=== PATIENT | female | born 1960 | race Caucasian/White ===

== ENCOUNTER 2019-04-17 12:07 | Inpatient (IN) | payer MEDICARE, SELFPAY ==
--- NOTE | 2019-04-17 12:59 | CT ---
EXAM: CT brain without contrast HISTORY: Nausea and vomiting. Headache and dizziness. COMPARISON: None TECHNIQUE: Multiple contiguous axial images were obtained and a CT of the brain without contrast. FINDINGS: The brain is normal in morphology and attenuation without focal lesions or confluent areas of infarction. There is no evidence of hydrocephalus, intracranial hemorrhage, or extra-axial fluid collection. The calvarium and overlying soft tissues are unremarkable. The visualized paranasal sinuses and masto id air cells are well aerated. IMPRESSION: No evidence of acute intracranial abnormality
[2019-04-17 13:07] LABS: #Monocytes 0.2 thou/uL (0.11-0.59); #Neutrophils 1.5 thou/uL (1.40-6.50); %Basophils 1.6 % (0.0-1.0); %Eosinophils 0.7 % (0.0-10.0); %Lymphocytes 35.3 % (21.0-51.0); %Monocytes 6.6 % (0.0-10.0); %Neutrophils 55.8 % (42.0-75.0); Hemoglobin 12.2 g/dL (12.0-16.0); Mean Corpuscular HGB CONC 34.1 g/dL (32.0-36.0); Mean Corpuscular Hemoglobin 34.1 pg (27.0-31.0); Mean Platelet Volume 7.7 fL (7.4-10.4); Platelet Count 227 thou/uL (130-400); RBC Distribution Width 12.2 % (11.5-14.5); Red Blood Cell (RBC) Count 3.57 mill/uL (4.20-5.40); White Blood Cell (WBC) Count 2.8 thou/uL (4.8-10.8)
[2019-04-17 13:28] LABS: ALT (SGPT) 44 U/L (8-55); AST (SGOT) 81 U/L (5-34); Alkaline Phosphatase 231 U/L (40-110); Anion Gap 12 mmol/L (10-20); BUN (Urea Nitrogen) Less than 4 mg/dL (9.8-20.1); Bilirubin, Total 0.2 mg/dL (0.2-1.2); Calc. Creatinine Clearance 0 mL/min (70-130); Calcium 8.5 mg/dL (7.8-10.44); Carbon Dioxide 35 mmol/L (22-29); Chloride 89 mmol/L (98-107); Estimated GFR-MDRD Greater than 90; Globulin 3.1 g/dL (2.4-3.5); Glucose 87 mg/dL (70-105); Potassium 3.3 mmol/L (3.5-5.1); Protein, Total 6.1 g/dL (6.0-8.3); Sodium 133 mmol/L (136-145)
[2019-04-17] MEDS ORDERED: Ondansetron PF 4 MG/2 ML Vial ONE ×2 (14:15→14:16)
[2019-04-17] MEDS ORDERED: Acetaminophen 500 MG TAB ONE (16:01)
[2019-04-17] MEDS ORDERED: Acetaminophen 650 MG Suppository ONE (16:01)
[2019-04-17 18:34] LABS: Troponin I Less than 0.010 ng/mL (< 0.028)
[2019-04-17] MEDS ORDERED: Aspirin 325 MG TAB ONE (19:52)
[2019-04-17 21:56] LABS: Troponin I Less than 0.010 ng/mL (< 0.028)
--- NOTE | 2019-04-17 22:20 | CT ---
CT Head without IV contrast COMPARISON: 04/17/2019 HISTORY: Abrasion to forehead after a fall. Dizziness. Nausea. Right-sided headache. TECHNIQUE: Axial CT imaging at 5 mm intervals from vertex through skull base without contrast FINDINGS: There is no evidence of an acute infarction, hemorrhage, mass effect, or midline shift. There is decr eased attenuation seen in the periventricular white matter which is nonspecific but likely attributable to chronic small vessel ischemic changes. There is mild cerebral volume loss. The ventri cular system is normal in size, shape, and position for the degree of sulcal atrophy. Visualized paranasal sinuses are clear. Osseous structures appear intact. No calvarial fracture is seen. There is mild scalp soft tissue swel ling seen in the right parietal region. IMPRESSION: 1. No acute intracranial abnormality demonstrated. 2. Chronic small vessel ischemic changes interval volume loss similar prior study. 2. Minimal scalp hematoma right parietal region.
--- NOTE | 2019-04-17 22:25 | CT ---
EXAM: CT cervical spine PROVIDED CLINICAL HISTORY: Dizziness after a fall. Vomiting. Right-sided headache. TECHNIQUE: Contiguous axial CT images are obtained through the cervical spine from the skull base to the T2-3 le hitesh. Sagittal and coronal reformatted images are provided. COMPARISON: None FINDINGS: There is narrowing of the C5-6 intervertebral disc space with endplate sclerosis and lucencies with p rominent osteophytes anteriorly. Findings are most likely related to severe endplate degenerative changes at this level. Scattered facet degenerative changes are present. No fracture or subluxation is seen involving the cervical spine. There is straightening of the normal cervical lordotic curvature. No prevertebral soft tissue swelling apparent. Visualized lung apices appear clear. Visualized thyroid gland demonstrates a grossly normal nonenhanced CT appearance. IMPRESSION: 1. No evidence of fracture or subluxation. 2. Findings most likely attributable to severe degenerative changes at C5-6 level.
--- NOTE | 2019-04-18 | HP ---
CHIEF COMPLAINT: Nausea, vomiting, dizziness, and headache. HISTORY OF PRESENT ILLNESS: Ms. Camp is a 58-year-old female with past medical history of hypothyroidism, bipolar disorder, started having headaches two days ago, but she says she had like flu-like symptoms five days ago and got better in two days, but again started having some nausea but no vomiting. Feeling very unsteady. When she gets up, her legs give away, give wobbly. She needs support to walk because she felt like she was going to fall. The headache is mainly on the right side behind the right eye with associated with nausea and blurry vision. Patient does not have any history of migraine headaches. So, because of these worsening symptoms, the patient came to the hospital. In the ER, patient was evaluated and found to have bradycardia as well as ataxic gait, so she is being admitted to rule out CVA and further evaluation of the bradycardia with close monitoring. PAST MEDICAL HISTORY: 1. Bipolar disorder. 2. Anxiety disorder. 3. Hypothyroidism. 4. Hyperlipidemia. 5. History of depression. PAST SURGICAL HISTORY: Status post orthopedic surgery which is not clear. CURRENT MEDICATIONS: Patient is on multiple medications, which include; 1. Keppra 750 b.i.d. 2. Chlorpromazine 50 mg four tablets daily. 3. Also, takes Seroquel 300 mg at bedtime. 4. Melatonin 5 mg at bedtime. 5. Gabapentin 300 mg t.i.d. Other medications still not clear at this point. ALLERGIES: NKDA. FAMILY HISTORY: Nothing contributory. SOCIAL HISTORY: Patient lives with family. She admits to using tobacco, smokes cigarettes daily, half pack a day. Also, uses marijuana. She has smoked for 20 years. Drinks almost daily, five drinks per day. REVIEW OF SYSTEMS: CARDIOVASCULAR: No chest pain. No shortness of breath. GENERAL: No fever or cough. GASTROINTESTINAL: Has nausea. No vomiting. CENTRAL NERVOUS SYSTEM: Has headache, dizziness. PHYSICAL EXAMINATION: GENERAL: Patient is alert, awake, and oriented x3. VITAL SIGNS: Temperature 98, pulse 60, respirations 20, and blood pressure 113/80. HEENT: Head is normocephalic and atraumatic. Pupils are equal and reactive. Nasopharynx is pale and dry. Hard and soft palate; no lesions. Skin turgor decreased. NECK: Supple. No JVD. LUNGS: Bilateral air entry. No rales. No rhonchi. HEART: S1-S2, regular. ABDOMEN: Soft. No distention. No tenderness. Normal bowel sounds. RECTAL: Deferred. CENTRAL NERVOUS SYSTEM: Patient is alert, awake, and oriented x3. Motor system, power 4/5 in all extremities. Deep tendon reflex 2+ bilaterally. Plantar downgoing. Sensory intact. LABORATORY DATA: CBC shows WBC 2.8, hemoglobin 12, hematocrit 35, and platelets 227. Metabolic panel; sodium 133, potassium 3.3, chloride 89, CO2 is 35, BUN is less than 4, creatinine 0.4, and glucose 87. CT of the brain; no evidence of acute intracranial abnormality. EKG shows sinus bradycardia with heart rate of 60. Acute ST-T changes seen. ASSESSMENT: 1. Unsteady gait with ataxia and dizziness, rule out cerebrovascular accident. 2. Severe headache, right frontal. 3. Sinus bradycardia, symptomatic. Rule out cardiac arrhythmia. 4. Bipolar disorder. 5. Polysubstance abuse. 6. Anxiety and depression. PLAN: 1. Vital signs q.4 hours. 2. Activity as tolerated. 3. Allergies, NKDA. 4. Hep-Lock. 5. Zofran 4 mg IV q.6 hours. 6. Tylenol p.r.n. 7. Continue home medications. 8. MRI of the brain. 9. Cardiac monitoring. 10. Echocardiogram. Job ID: [id number]
[2019-04-18] MEDS ORDERED: Ondansetron ODT 4 MG TAB SL PRN (00:16)
[2019-04-18] MEDS ORDERED: Ondansetron PF 4 MG/2 ML Vial IVP PRN (00:16)
[2019-04-18] MEDS: Potassium Chloride 20 MEQ TAB PO SCH ×2 (00:56→06:24)
[2019-04-18] MEDS: Acetaminophen 500 MG TAB PO PRN ×2 (01:15→08:17)
[2019-04-18] MEDS ORDERED: Melatonin 3 MG TAB PO PRN (06:45)
[2019-04-18 07:17] LABS: #Lymphocytes 0.7 thou/uL (1.20-3.40); #Monocytes 0.2 thou/uL (0.11-0.59); #Neutrophils 2.2 thou/uL (1.40-6.50); %Basophils 0.6 % (0.0-1.0); %Eosinophils 0.9 % (0.0-10.0); %Lymphocytes 23.1 % (21.0-51.0); %Monocytes 6.8 % (0.0-10.0); %Neutrophils 68.6 % (42.0-75.0); Hemoglobin 11.9 g/dL (12.0-16.0); Mean Corpuscular HGB CONC 33.5 g/dL (32.0-36.0); Mean Corpuscular Hemoglobin 33.7 pg (27.0-31.0); Mean Platelet Volume 7.6 fL (7.4-10.4); Platelet Count 210 thou/uL (130-400); RBC Distribution Width 12.2 % (11.5-14.5); Red Blood Cell (RBC) Count 3.53 mill/uL (4.20-5.40); White Blood Cell (WBC) Count 3.2 thou/uL (4.8-10.8)
[2019-04-18 07:25] LABS: Chloride 89 mmol/L (98-107); Potassium 3.8 mmol/L (3.5-5.1); Sodium 126 mmol/L (136-145)
[2019-04-18 07:26] LABS: Calcium 8.2 mg/dL (7.8-10.44); Glucose 111 mg/dL (70-105)
[2019-04-18 07:28] LABS: Anion Gap 12 mmol/L (10-20); Carbon Dioxide 29 mmol/L (22-29)
[2019-04-18 07:30] LABS: BUN (Urea Nitrogen) Less than 4 mg/dL (9.8-20.1); Calc. Creatinine Clearance 64 mL/min (70-130); Estimated GFR-MDRD Greater than 90
[2019-04-18] MEDS: Gabapentin 300 MG CAP PO SCH ×2 (08:17→21:51)
[2019-04-18] MEDS: levETIRAcetam 500 mg/5 ml Oral Solution PO SCH ×2 (08:17→21:51)
[2019-04-18] MEDS: OXcarbazepine 300 MG TAB PO SCH ×2 (08:18→21:51)
--- NOTE | 2019-04-18 10:01 | RAD ---
EXAM: Two views chest PROVIDED CLINICAL HISTORY: None provided COMPARISON: None FINDINGS: Cardiac and mediastinal silhouette appears within normal limits. Lungs appear free of significant opa city. No pleural fluid or pneumothorax apparent. IMPRESSION: No evidence for an acute cardiopulmonary process.
[2019-04-18 16:01] LABS: Amphetamine Not Detected (NotDetected); Barbiturates Screen Not Detected (NotDetected); Benzodiazepine Screen Not Detected (NotDetected); Cocaine Metabolite Screen Not Detected (NotDetected); Medtox Control Line Valid? VALID (VALID); Medtox Reader # READER 4; Methadone Not Detected (NotDetected); Methamphetamine Not Detected (NotDetected); Opiate Screen Not Detected (NotDetected); Oxycodone Screen Not Detected (NotDetected); Phencyclidine (PCP) Not Detected (NotDetected); THC/Cannabinoid Screen Detected (NotDetected); Tricyclic Screen Detected (NotDetected)
--- NOTE | 2019-04-18 16:12 | CON ---
DATE OF CONSULTATION: 04/18/2019 REASON FOR CONSULTATION: Bradycardia. HISTORY OF PRESENT ILLNESS: Ms. Camp is a pleasant 58-year-old white female, who comes to the hospital for dizziness. She was admitted for a possible diagnosis of CVA as she had an unsteady gait with ataxia and dizziness. She had a negative CT of the brain and is awaiting MRI results. She was initially seen with heart rate in the upper 50s, so Cardiology consulted to see if her dizziness is related to bradycardia. Currently, she is no longer bradycardic, heart rate in the 60s to 70s, and she feels just slightly better, but still pretty much the same. She denies any chest pain, tightness, pressure, or shortness of breath. PAST MEDICAL HISTORY: 1. Bipolar disorder. 2. Anxiety disorder. 3. Hypothyroidism. 4. Hyperlipidemia. 5. Depression. PAST SURGICAL HISTORY: Some orthopedic surgery in the past. OUTPATIENT MEDICATIONS: 1. Keppra 750 mg b.i.d. 2. Chlorpromazine 50 mg four times a day. 3. Seroquel 300 mg a day. 4. Melatonin. 5. Gabapentin 300 mg t.i.d. ALLERGIES: NO KNOWN DRUG ALLERGIES. FAMILY HISTORY: Noncontributory. SOCIAL HISTORY: She smokes half pack a day. Uses marijuana. Drinks alcohol daily about five drinks. REVIEW OF SYSTEMS: A 12-point review of systems was done and was all negative unless stated in the history of present illness. PHYSICAL EXAMINATION: VITAL SIGNS: Temperature 98.3, pulse 81, respiratory rate 15, saturating 100% on room air, blood pressure 123/87. GENERAL: Awake, alert, oriented x3. No distress. HEENT: Normocephalic, atraumatic. NECK: Supple. LUNGS: Clear. CARDIOVASCULAR: S1 and S2. No S3 or S4. No murmurs. ABDOMEN: Soft. Positive bowel sounds. EXTREMITIES: No edema. SKIN: Warm and dry. LABORATORY DATA: Laboratory work was reviewed. CBC with a white count of 2, hemoglobin 12, hematocrit 35, platelet count of 227. Chemistry with a sodium of 126, potassium 3.8, chloride of 89, carbon dioxide of 29, anion gap of 12, BUN undetectable, creatinine 0.5, GFR greater than 90. Troponin was undetectable x3. Albumin was 3.0. ASSESSMENT AND PLAN: 1. Bradycardia, resolved. Mild bradycardia, most likely not the source of her symptoms. 2. Hyponatremia. 3. Possible cerebrovascular accident versus transient ischemic attack. Awaiting MRI results. PLAN: We will await echo results. If this is normal, we will plan to sign off. Please call with any further questions. If there is any significant valvular abnormalities or functional mass on the echo, we will re-evaluate in the morning. Thank you for letting us participate in the care of your patient. Job ID: [id number] MTDDebbie
--- NOTE | 2019-04-18 16:21 | MRI ---
EXAM: MRI Brain W WO Con PROVIDED CLINICAL HISTORY: Nausea, dizziness, and right-sided headache. Fall 2010 days ago. COMPARISON: CT head on 04/17/2019. FINDINGS: There is increased FLAIR and T2-weighted signal intensity in the periventricular white matter predomi nantly adjacent to the atria of each lateral ventricle which is nonspecific but likely attributable to chronic small vessel ischemic changes. No acute cortical infarction is visualized. There is gyrifo rm area of hemosiderin deposition seen in the left anterior frontal lobe suggesting prior area of hemorrhage. No abnormal areas of enhancement are seen after the administration of intravenous contras t. The septum pellucidum and third ventricle are in the midline. There is mild cerebral and cerebellar v olume loss. The ventricular system is normal in size, shape, and position for the degree of sulcal atrophy. Appropriate flow voids are demonstrated at the base of the brain. Minimal mastoid effusions are seen on the right. The orbits, paranasal sinuses, and remainder of the the skull base have a normal MRI appearance IMPRESSION: 1. No acute intracranial abnormalities demonstrated. 2. Findings likely attributable chronic small vessel ischemic changes. 3. Mild cerebral and cerebellar volume loss. 4. Hemosiderin staining in a gyriform location left anterior frontal lobe suggesting area of prior he morrhage. 5. Minimal mastoid effusion on the right.
[2019-04-18] MEDS ORDERED: Magnevist 469MG/ML 20 ML VIAL ONE (17:00)
[2019-04-18] MEDS ORDERED: CLOMIPRAMINE PO SCH (21:00)
--- NOTE | 2019-04-18 21:51 | ULT ---
EXAM: Carotid Doppler PROVIDED CLINICAL HISTORY: Evidence for CVA COMPARISON: None FINDINGS: Grayscale and color Doppler sonography with spectral analysis was performed of the extracranial carot id system bilaterally. There is no evidence for a hemodynamically significant internal carotid artery stenosis by peak systolic velocity or ratio criteria. Antegrade flow is seen in the vertebral arteries. IMPRESSION: No sonographic evidence for a hemodynamically significant internal carotid artery stenosis.
[2019-04-19] MEDS: Levothyroxine Sodium 25 MCG TAB PO SCH (05:37)
[2019-04-19] MEDS: levETIRAcetam 500 mg/5 ml Oral Solution PO SCH ×2 (09:01→20:32)
[2019-04-19] MEDS: OXcarbazepine 300 MG TAB PO SCH ×2 (09:01→20:31)
[2019-04-19] MEDS: Gabapentin 300 MG CAP PO SCH ×2 (09:01→20:32)
[2019-04-19 11:32] LABS: Potassium, Urine 32.7 mmol/L
[2019-04-19 12:30] LABS: Hemoglobin 12.6 g/dL (12.0-16.0); Mean Corpuscular HGB CONC 35.3 g/dL (32.0-36.0); Mean Corpuscular Volume 99.3 fL (78.0-98.0); Mean Platelet Volume 7.8 fL (7.4-10.4); Platelet Count 199 thou/uL (130-400); RBC Distribution Width 12.1 % (11.5-14.5); Red Blood Cell (RBC) Count 3.61 mill/uL (4.20-5.40); White Blood Cell (WBC) Count 4.1 thou/uL (4.8-10.8)
[2019-04-19 12:54] LABS: Anion Gap 13 mmol/L (10-20); BUN (Urea Nitrogen) 4 mg/dL (9.8-20.1); Calc. Creatinine Clearance 71 mL/min (70-130); Calcium 8.4 mg/dL (7.8-10.44); Carbon Dioxide 24 mmol/L (22-29); Chloride 88 mmol/L (98-107); Estimated GFR-MDRD Greater than 90; Glucose 98 mg/dL (70-105); Potassium 4.3 mmol/L (3.5-5.1); Sodium 121 mmol/L (136-145)
[2019-04-19] MEDS ORDERED: Sodium Bicarbonate Tab 325 MG TAB PO SCH ×2 (17:00→21:00)
[2019-04-19] MEDS: Acetaminophen 500 MG TAB PO PRN (17:45)
[2019-04-19] MEDS: Ondansetron ODT 4 MG TAB PO PRN (20:31)
--- NOTE | 2019-04-19 22:09 | CON ---
DATE OF CONSULTATION: REQUESTING PHYSICIAN: Jared De La Cruz MD REASON FOR CONSULTATION: Hyponatremia. IMPRESSION: Hyponatremia. This is likely in the context of poor p.o. osmolar intake going by the urine osmolality of about 217. One cannot completely rule out hyponatremia in the contest of poor osmolar intake. PLAN: 1. We will restrict the free water intake in this patient about 1.2 L in 24 hours. 2. We will step up the osmolar intake in this patient by increasing the meat intake in this patient. The patient to be on regular diet. 3. If the patient does not have any significant appetite to keep up with this diet, we will recommend stimulating the appetite of this patient with possible Marinol in order to achieve sustainable sodium level. 4. Evaluate TSH level. HISTORY OF PRESENT ILLNESS: The patient is a 58-year-old female patient, who presented here with nausea, vomiting, dizziness and headache and noted on presentation with sodium of 126; however, over the course of hospitalization has drifted down to 121. The patient has not been eating very well and claimed not to have appreciable appetite. In any case, the patient continues to drink water. As a result of the worsening hyponatremia, decision was taken to involve Renal in the management of this case. PAST MEDICAL HISTORY: Significant for anxiety disorder, bipolar, hypothyroidism, dyslipidemia, depression. MEDICATIONS: Reviewed and as documented on [employer]. ALLERGIES: NO KNOWN DRUG ALLERGIES. FAMILY HISTORY: Not significantly related to present illness. SOCIAL HISTORY: Significant for tobacco use. Drinks almost on daily basis, about 5 drinks per day. REVIEW OF SYSTEMS: As documented in the body of the history. Otherwise, all other systems were reviewed and found not to be significantly related to present illness. PHYSICAL EXAMINATION: GENERAL: The patient was found to be somewhat ill looking and cachectic. Noted with the following vital signs. VITAL SIGNS: Afebrile, temperature 98.5, pulse 85, respiratory rate of 16, O2 saturations are 99%, blood pressure 113/75. HEENT: Unremarkable. CARDIOVASCULAR SYSTEM: First and second heart sounds were heard. RESPIRATORY SYSTEM: Clear to auscultation. DIGESTIVE SYSTEM: Revealed a benign abdomen. Positive bowel sounds. EXTREMITIES: No peripheral edema. SKIN: No new gross rash. LYMPHATICS: No peripheral lymphadenopathy. SUMMARY: A 58-year-old female patient, who presented here with hyponatremia, worsened over the course of hospitalization, likely in the context of poor p.o. osmolar intake. If the patient cannot keep up with appreciable p.o. osmolar intake, we will stimulate the appetite as well as possibly place this patient on normal saline infusion. This will be dependent on what the sodium level is by tomorrow morning. Job ID: [id number]
[2019-04-20 05:18] LABS: Anion Gap 10 mmol/L (10-20); BUN (Urea Nitrogen) 4 mg/dL (9.8-20.1); Calc. Creatinine Clearance 83 mL/min (70-130); Calcium 8.2 mg/dL (7.8-10.44); Carbon Dioxide 24 mmol/L (22-29); Chloride 93 mmol/L (98-107); Estimated GFR-MDRD Greater than 90; Glucose 81 mg/dL (70-105); Potassium 3.8 mmol/L (3.5-5.1); Sodium 123 mmol/L (136-145)
[2019-04-20] MEDS: Levothyroxine Sodium 25 MCG TAB PO SCH (06:01)
[2019-04-20] MEDS: Ondansetron ODT 4 MG TAB PO PRN ×2 (06:01→17:03)
[2019-04-20] MEDS: levETIRAcetam 500 mg/5 ml Oral Solution PO SCH ×2 (08:41→20:17)
[2019-04-20] MEDS: Gabapentin 300 MG CAP PO SCH ×2 (08:42→20:18)
[2019-04-20] MEDS: OXcarbazepine 300 MG TAB PO SCH ×2 (08:42→20:18)
[2019-04-20] MEDS: Acetaminophen 500 MG TAB PO PRN (11:56)
[2019-04-21] MEDS: Acetaminophen 500 MG TAB PO PRN ×2 (00:36→13:28)
[2019-04-21] MEDS: Levothyroxine Sodium 25 MCG TAB PO SCH (05:22)
[2019-04-21 06:09] LABS: Anion Gap 9 mmol/L (10-20); BUN (Urea Nitrogen) 4 mg/dL (9.8-20.1); Calc. Creatinine Clearance 74 mL/min (70-130); Calcium 8.3 mg/dL (7.8-10.44); Carbon Dioxide 24 mmol/L (22-29); Chloride 96 mmol/L (98-107); Estimated GFR-MDRD Greater than 90; Glucose 78 mg/dL (70-105); Potassium 3.8 mmol/L (3.5-5.1); Sodium 125 mmol/L (136-145)
[2019-04-21] MEDS: Ondansetron ODT 4 MG TAB PO PRN ×2 (06:31→16:58)
[2019-04-21] MEDS: levETIRAcetam 500 mg/5 ml Oral Solution PO SCH ×2 (09:00→20:20)
[2019-04-21] MEDS: Gabapentin 300 MG CAP PO SCH ×2 (09:01→20:19)
[2019-04-21] MEDS: OXcarbazepine 300 MG TAB PO SCH ×2 (09:01→20:19)
--- NOTE | 2019-04-21 15:26 | PQF ---
DANNY LIMON, SHAD Rodriguez MD [phone] [facility] [id number] CLINICAL DOCUMENTATION IMPROVEMENT CLARIFICATION FORM: ICD-10 Updated PLEASE DO AN ADDENDUM TO THE PROGRESS NOTE WITH ANY DOCUMENTATION UPDATES OR ADDITIONS AND CARRY THROUGH TO DC SUMMARY. THANK YOU. Date: 04/21/2019 ATTN: DR. Anabel SCOTT Please exercise your independent, professional judgment in responding to the clarification form. Clinical indicators are provided on the bottom of this form for your review. Please check appropriate box(s): [ y ] Protein Calorie Malnutrition: [ ] Mild [y ] Moderate [ ] Severe [ ] Other Malnutrition (please specify) __ [ ] Cachexia [ ] Other diagnosis [ ] Unable to determine In addition, please specify: Present on Admission (POA): [ y] Yes [ ] No [ ] Unable to determine CLINICAL INDICATORS - SIGNS / SYMPTOMS / LABS / RESULTS AND LOCATION IN 04/18 RD EVALUATION: NUTRITION DIAGNOSIS /MALNUTRITION EVIDENCED BY 16% WEIGHT LOSS OVER 2 WEEKS WITH MILD TO MODERATE TEMPORAL MUSCLE WASTING OBSERVED AND SEVERE FAT WASTING OBSERVED SUGGESTIVE OF SEVERE MALNUTRITION IN THE CONTEXT OF A SOCIAL CIRCUMSTANCE PT TRIGGERED FOR BMI 12.4 , NAUSEA,VOMITING AND DIARRHEA [employer] OFFICER RISK: POLYSUBSTANCE ABUSE , NAUSEA (H&P / [facility]) 04/18 TREATMENTS: DIETARY CONSULT (04/18) RECOMMENDED ENSURE CLEAR TID (/ 04/28) Moderate Malnutrition (in acute illness) Energy Intake: <75% of estimated energy requirement for > 7 days Weight Loss: 1-2%/1 week; 5%/ 1 month; 7.5%/3 months Other: mild body fat loss; mild muscle mass loss; mild fluid accumulation; Severe Malnutrition (in acute illness) Energy Intake: < 50% of estimated energy requirement for > 5 days Weight Loss: >1-2%/1 week; >5%/1 month; >7.5%/3 months Other: moderate body fat loss; moderate muscle mass loss; moderate- severe fluid accumulation; measurably reduced senior applications architect strength Moderate Malnutrition (in chronic illness) Energy Intake: <75% of estimated energy requirement for >1 month Weight Loss: 5%/1 month; 7.5%/3 months; 10%/6 months; 20%/1 year Other: mild body fat loss; mild muscle mass loss; mild fluid accumulation Severe Malnutrition (in chronic illness) Energy Intake: <75% of estimated energy requirement for >1 month Weight Loss: >5%/1 month; >7.5%/3 months; >10%/6 months; >20%/1 year Other: severe body fat loss; severe muscle mass loss; severe fluid accumulation ; measurably reduced senior applications architect strength THANK YOU! MARITA (This form is maintained as a part of the permanent medical record) 2015 [employer] All Rights Reserved LUCERO [phone] MTDDebbie
[2019-04-21] MEDS: Nicotine 14 MG PATCH TOP SCH (18:52)
[2019-04-21] MEDS: Melatonin 3 MG TAB PO SCH (20:19)
[2019-04-22] MEDS: Levothyroxine Sodium 25 MCG TAB PO SCH (05:24)
[2019-04-22 06:42] LABS: Anion Gap 10 mmol/L (10-20); BUN (Urea Nitrogen) 4 mg/dL (9.8-20.1); Calc. Creatinine Clearance 79 mL/min (70-130); Calcium 8.7 mg/dL (7.8-10.44); Carbon Dioxide 25 mmol/L (22-29); Chloride 97 mmol/L (98-107); Estimated GFR-MDRD Greater than 90; Glucose 89 mg/dL (70-105); Potassium 3.9 mmol/L (3.5-5.1); Sodium 128 mmol/L (136-145)
[2019-04-22] MEDS: levETIRAcetam 500 mg/5 ml Oral Solution PO SCH ×2 (08:48→20:09)
[2019-04-22] MEDS: Gabapentin 300 MG CAP PO SCH ×2 (08:49→20:11)
[2019-04-22] MEDS: OXcarbazepine 300 MG TAB PO SCH ×2 (08:49→20:11)
[2019-04-22] MEDS: Ondansetron ODT 4 MG TAB PO PRN (08:50)
[2019-04-22] MEDS: Acetaminophen 500 MG TAB PO PRN (13:45)
[2019-04-22] MEDS: Nicotine 14 MG PATCH TOP SCH (17:23)
[2019-04-22] MEDS: Melatonin 3 MG TAB PO SCH (20:11)
[2019-04-23] MEDS: Levothyroxine Sodium 25 MCG TAB PO SCH (05:19)
[2019-04-23 06:28] LABS: Anion Gap 10 mmol/L (10-20); BUN (Urea Nitrogen) Less than 4 mg/dL (9.8-20.1); Calc. Creatinine Clearance 73 mL/min (70-130); Calcium 8.5 mg/dL (7.8-10.44); Carbon Dioxide 25 mmol/L (22-29); Chloride 98 mmol/L (98-107); Estimated GFR-MDRD Greater than 90; Glucose 105 mg/dL (70-105); Potassium 3.6 mmol/L (3.5-5.1); Sodium 129 mmol/L (136-145)
[2019-04-23] MEDS: Gabapentin 300 MG CAP PO SCH ×2 (09:18→20:53)
[2019-04-23] MEDS: levETIRAcetam 500 mg/5 ml Oral Solution PO SCH ×2 (09:18→20:54)
[2019-04-23] MEDS: OXcarbazepine 300 MG TAB PO SCH ×2 (09:19→20:54)
[2019-04-23 12:40] VITALS: BMI 11.9
[2019-04-23] MEDS: Ondansetron ODT 4 MG TAB PO PRN (16:02)
--- NOTE | 2019-04-23 16:42 | PRG ---
DATE OF SERVICE: 04/23/2019 SUBJECTIVE: The patient was seen and examined, no new complaint noted with the following vital signs. OBJECTIVE: VITAL SIGNS: Afebrile, temperature 98.9, pulse 86, respiratory rate of 16, O2 saturations 99%, and blood pressure 142/88. HEENT: Unremarkable. CARDIOVASCULAR: First and second sounds were heard. RESPIRATORY: Clear to auscultation. DIGESTIVE: Revealed a benign abdomen with positive bowel sounds. EXTREMITIES: No peripheral edema. SKIN: No new gross rash. LYMPHATICS: No peripheral lymphadenopathy. IMPRESSION: Hyponatremia, likely in the context of poor p.o. osmolar intake. PLAN: 1. We will continue with increased nutrition. 2. Outpatient Nephrology followup in 4 weeks status post discharge. Job ID: [id number]
[2019-04-23] MEDS: Nicotine 14 MG PATCH TOP SCH (17:54)
[2019-04-23] MEDS ORDERED: traMADol HCl 50 MG TAB PO PRN (20:12)
[2019-04-23] MEDS: Melatonin 3 MG TAB PO SCH (20:54)
[2019-04-23] MEDS: Milk Of Magnesia 30 ML UDCUP PO PRN (21:00)
[2019-04-24] MEDS ORDERED: Sodium Chloride 0.9% 250 ML 250 ML IVPB SCH (01:00)
[2019-04-24] MEDS ORDERED: Sodium Chloride 0.9% 250 ML IVPB SCH (02:00)
[2019-04-24 05:24] LABS: #Eosinphils 0.1 thou/uL (0.0-0.7); #Lymphocytes 1.5 thou/uL (1.20-3.40); #Monocytes 0.5 thou/uL (0.11-0.59); #Neutrophils 2.7 thou/uL (1.40-6.50); %Basophils 0.6 % (0.0-1.0); %Eosinophils 1.1 % (0.0-10.0); %Lymphocytes 31.4 % (21.0-51.0); %Monocytes 10.5 % (0.0-10.0); %Neutrophils 56.4 % (42.0-75.0); Hemoglobin 10.3 g/dL (12.0-16.0); Mean Corpuscular HGB CONC 34.4 g/dL (32.0-36.0); Mean Corpuscular Hemoglobin 34.3 pg (27.0-31.0); Mean Corpuscular Volume 99.6 fL (78.0-98.0); Mean Platelet Volume 7.7 fL (7.4-10.4); Platelet Count 205 thou/uL (130-400); RBC Distribution Width 12.2 % (11.5-14.5); Red Blood Cell (RBC) Count 3.01 mill/uL (4.20-5.40); White Blood Cell (WBC) Count 4.7 thou/uL (4.8-10.8)
[2019-04-24 05:43] LABS: Anion Gap 8 mmol/L (10-20); BUN (Urea Nitrogen) Less than 4 mg/dL (9.8-20.1); Calc. Creatinine Clearance 76 mL/min (70-130); Calcium 8.4 mg/dL (7.8-10.44); Carbon Dioxide 29 mmol/L (22-29); Chloride 99 mmol/L (98-107); Estimated GFR-MDRD Greater than 90; Glucose 79 mg/dL (70-105); Potassium 3.7 mmol/L (3.5-5.1); Sodium 132 mmol/L (136-145)
[2019-04-24] MEDS: Levothyroxine Sodium 25 MCG TAB PO SCH (05:52)
[2019-04-24] MEDS: levETIRAcetam 500 mg/5 ml Oral Solution PO SCH ×2 (09:17→21:23)
[2019-04-24] MEDS: Milk Of Magnesia 30 ML UDCUP PO PRN (09:17)
[2019-04-24] MEDS: Gabapentin 300 MG CAP PO SCH ×2 (09:17→21:22)
[2019-04-24] MEDS: OXcarbazepine 300 MG TAB PO SCH ×2 (09:18→21:25)
[2019-04-24] MEDS ORDERED: Magnesium Citrate 300 ML BOT PO SCH (14:45)
[2019-04-24 15:41] LABS: Syphilis Antibody Nonreactive (Nonreactive); Syphilis Antibody Index 0.08 S/CO (<1.00 Non-Reactive)
[2019-04-24 15:51] LABS: Thyroid Stimulating Hormone 0.8877 uIU/mL (0.35-4.94)
[2019-04-24] MEDS: Acetaminophen 500 MG TAB PO PRN (16:36)
[2019-04-24] MEDS: Nicotine 14 MG PATCH TOP SCH (18:22)
[2019-04-24] MEDS: Melatonin 3 MG TAB PO SCH (21:25)
[2019-04-25] MEDS ORDERED: Sodium Chloride 0.9% 500 ML IVPB SCH (02:45)
[2019-04-25 05:39] LABS: Anion Gap 8 mmol/L (10-20); BUN (Urea Nitrogen) 5 mg/dL (9.8-20.1); Calc. Creatinine Clearance 76 mL/min (70-130); Calcium 8.3 mg/dL (7.8-10.44); Carbon Dioxide 30 mmol/L (22-29); Chloride 101 mmol/L (98-107); Estimated GFR-MDRD Greater than 90; Glucose 77 mg/dL (70-105); Sodium 136 mmol/L (136-145)
[2019-04-25] MEDS: Levothyroxine Sodium 25 MCG TAB PO SCH (05:54)
[2019-04-25] MEDS: Gabapentin 300 MG CAP PO SCH ×2 (10:03→20:47)
[2019-04-25] MEDS: OXcarbazepine 300 MG TAB PO SCH (10:04)
[2019-04-25] MEDS: levETIRAcetam 500 mg/5 ml Oral Solution PO SCH ×2 (10:04→20:48)
--- NOTE | 2019-04-25 12:30 | CON ---
DATE OF CONSULTATION: 04/25/2019 CHIEF COMPLAINT: Dizziness. HISTORY OF PRESENT ILLNESS: The patient is a 58-year-old lady, who comes in with dizziness. She just was having some flu-like symptoms recently, which improved, but she was beginning to have lightheadedness when sitting or standing up. She does not have any spinning sensation. No weakness, double vision, loss of vision, but her right face and arm became numb, which concerned her, so she came to the hospital. PREVIOUS MEDICAL HISTORY: Bipolar disorder, anxiety disorder, osteoporosis, multiple fractures, hypothyroidism. She was trying to get back on her medications for OCD. She was on clomipramine before moving to [place] three months ago and she has been off this medication for about three months. She thinks she might be having withdrawal symptoms. PREVIOUS SURGICAL HISTORY: Positive for fractured bones, rods in her leg, plate in her hip, arm surgery, she had appendectomy. FAMILY HISTORY: She has 12 siblings. No history of strokes or [place]. Father of rectal cancer at 78. Mother at 48 following hysterectomy. She from a PE after the procedure. The patient has no children. SOCIAL HISTORY: She lives with her and dogs. She smokes half pack a day and she drinks a little wine every day. CURRENT MEDICATIONS: At home she is on, 1. Clomipramine 200 mg per day. 2. Gabapentin 1200 mg b.i.d. 3. Keppra 750 mg b.i.d. 4. Levothyroxine 25 mcg per day. 5. Magnesium hydroxide. 6. Melatonin. 7. Nicotine. 8. Ondansetron as needed. 9. Oxcarbazepine 300 mg twice daily. 10. Pantoprazole 40 mg per day. 11. Potassium chloride 20 mEq per day. 12. Potassium 300 mg per day. IMAGING DATA: Her MRI of the brain was reviewed and did not show any acute lesions. She does have some white matter ischemic areas in the lateral ventricles, but these are nonspecific in nature. Her echocardiogram was negative for any valvular abnormalities or focus of any clots. LABORATORY DATA: Lab workup; white count 4.7, hemoglobin 10.3, hematocrit 30, platelet count 205, and her chemistry; sodium is 136, potassium 3, chloride 101, bicarbonate 30, BUN is 5, creatinine 0.46, glucose 77. TSH 0.88. Vitamin B12 581. Urine tox screen is positive for tricyclics and cannabinoids. Syphilis serologies negative. Her urine osmolality is 217. REVIEW OF SYSTEMS: PULMONARY: Negative for shortness of breath or cough. GASTROINTESTINAL: Negative for nausea, vomiting, or diarrhea. OPHTHALMOLOGIC: Negative for vision problems. DERMATOLOGIC: Negative for any rash. EARS, NOSE, AND THROAT: Negative for any hearing issues. CARDIAC: Negative for chest pain or palpitations. PHYSICAL EXAMINATION: VITAL SIGNS: Temperature 96.4, pulse 70, respiratory rate 16, and blood pressure 103/77. Sitting blood pressure 101/76, standing 111/81, and supine 111/71. She has had low recordings of blood pressure throughout this time and her blood pressures have gone down, lowest reading was 74/59, and her pulse rate is 99, respiratory rate 16. GENERAL APPEARANCE: Very thin built, frail lady. CHEST: Clear vesicular breathing. CARDIOVASCULAR: S1, S2 heard. No murmurs. ABDOMEN: Soft and nontender. No organomegaly noted. NEUROLOGICAL EXAMINATION: Higher intellectual functions normal. Orientation to time, place, and person. Appropriate conversation. Cranial nerves 2 through 12 normal. Pupils 2 mm, reactive. She had mild numbness of the right side of the face. No facial asymmetry noted. Normal hearing bilaterally. Tongue midline. No atrophy noted. Normal elevation of palate. Motor exam; bulk normal, tone normal. Strength 5/5 throughout in upper and lower extremities. We were unable to test her right wrist because it is in a cast due to recent wrist fracture and her strength was tested in iliopsoas, hamstrings, quadriceps, ankle dorsiflexion, plantar flexion, deltoid, biceps, triceps, and wrist extension and flexion on the left side, finger extension and flexion bilaterally. Deep tendon, reflexes 1+ throughout. Sensory normal to touch everywhere, except right arm and right face, which were reported as mild numbness on the right side. Cerebellar, normal [id number]. Gait was normal. IMPRESSION: The patient is a 58-year-old lady, who has dizziness. Her dizziness could be nonspecific and non-neurological, likely secondary to medication. She is on high-dose clomipramine and has urine positive for cannabinoids as well, and she has hypotension and blood pressures are low normally and she reported to me that she was on magnesium citrate, which caused her to have diarrhea. She also has mild hyponatremia. All of these could have contributed to her dizziness. Her MRI did not show any acute stroke; however, she has mild right arm and face numbness, which could be a very small microinfarcts, not visible on MRI. At this time, I do think she might have had a mild stroke involving the right face and arm sensory loss, but that is not related to the dizziness and the dizziness is more secondary to medical causes and neurological. RECOMMENDATIONS: I would suggest she take aspirin 81 mg per day for stroke prophylaxis. She needs to be counseled on her diet mainly for her osteoporosis as well as her hypotension. I will see her as needed from tomorrow. Job ID: [id number]
[2019-04-25] MEDS: Potassium Chloride 20 MEQ TAB PO SCH ×3 (14:11→20:47)
[2019-04-25] MEDS: Acetaminophen 500 MG TAB PO PRN (17:35)
[2019-04-25] MEDS: Nicotine 14 MG PATCH TOP SCH (17:35)
[2019-04-25] MEDS ORDERED: Melatonin 3 MG TAB PO SCH (21:00)
[2019-04-26 05:13] LABS: Anion Gap 7 mmol/L (10-20); BUN (Urea Nitrogen) 5 mg/dL (9.8-20.1); Calc. Creatinine Clearance 76 mL/min (70-130); Calcium 8.5 mg/dL (7.8-10.44); Carbon Dioxide 28 mmol/L (22-29); Cardiac Risk 2.5 (Less than 4.5); Chloride 102 mmol/L (98-107); Cholesterol 127 mg/dl (< 200 Desired); Estimated GFR-MDRD Greater than 90; Glucose 78 mg/dL (70-105); HDL Cholesterol 50 mg/dL (>60 Neg Risk); LDL Cholesterol, Calculated 62 mg/dL; Potassium 4.1 mmol/L (3.5-5.1); Sodium 133 mmol/L (136-145); Triglycerides 77 mg/dL (Less than 150)
[2019-04-26] MEDS: Levothyroxine Sodium 25 MCG TAB PO SCH (05:49)
[2019-04-26] MEDS: levETIRAcetam 500 mg/5 ml Oral Solution PO SCH (08:36)
[2019-04-26] MEDS: OXcarbazepine 300 MG TAB PO SCH (08:37)
[2019-04-26] MEDS: Acetaminophen 500 MG TAB PO PRN (08:37)
[2019-04-26] MEDS: Gabapentin 300 MG CAP PO SCH (08:37)
[2019-04-26] MEDS ORDERED: Aspirin 81 mg Enteric Coated Tablet PO SCH (09:00)
[2019-04-26 12:04] VITALS: BP 125/81; TEMP 97.2
[2019-04-26] MEDS ORDERED: OXcarbazepine 300 MG TAB PO SCH (14:00)
--- NOTE | 2019-04-28 22:36 | PQF ---
DANNY LIMON VENKAT R MD [id number] [id number] CLINICAL DOCUMENTATION CLARIFICATION FORM: POST DISCHARGE Addendum to original discharge summary date: ____ Late entry note date: __ DATE: 04/28/19 ATTN: Jared Cabral Please exercise your independent, professional judgment in responding to the clarification form. Clinical indicators are provided on the bottom of this form for your review In your clinical opinion based on clinical findings below, can you please specify etiology of Ataxia with Dizziness if due to: Please check appropriate box(s): [ ] Hyponatremia [ ] Bradycardia [ ] Adverse effect of Clomipramine [ ] Toxic effect of cannabinoids [ ] Cerebral Microinfarct [ ] Other condition, please specify: [y ] Unable to determine In addition, please specify: Present on Admission (POA): y] Yes [ ] No [ ] Unable to determine For continuity of documentation, please document condition throughout progress notes and discharge summary. Thank You. CLINICAL INDICATORS - SIGNS / SYMPTOMS / LABS H&P p1 04/17 Dr De La Cruz Started having headaches two days ago H&P p1 04/17 Dr De La Cruz Feeling very unsteady. When she gets up, her legs give away, give wobbly H&P p1 04/17 Dr De La Cruz The headache is mainly on the right side behind the right eye with associated with nausea and blurry visin H&P p1 04/17 Dr De La Cruz In ER, pt was evaluated and found to have bradycardia as well as ataxic gait, so she is being admitted to rule out CVA and further evaluation of bradycardia with close monitoring Consult p2 04/19 Dr Cox Bradycardia, resolved, most likely not the source of her symptoms Neurology consult p3 04/25 Dr Randhawa Her dizziness could be nonspecific and non -neurological likely secondary to medication. She is on high-dose clomipramine and has urine positive for cannabinoids as well and has hypotension Neurology consult p3 04/25 Dr Randhawa Her MRI did not show any acute stoke, however she had mild right arm and face numbness, which could be very small microinfarcts not visible on MRI RISK FACTORS H&P p2 04/17 - Sinus Bradycardia H&P p2 04/17 - Polysubstance abuse Nephrology consult 04/19 Hyponatremia TREATMENTS: Order 04/17 For Brain MRI H&P p3 04/17 Cardiac Monitoring H&P p3 04/17 Vital signs [id number] H&P p3 04/17 For Echocardiogram Cardiology Consult 04/18 Brian Melissa Nephrology consult 04/19 Alyssia Arreguin (This form is maintained as a part of the permanent medical record) 2014 [employer] All Rights Reserved [email or web address] [not [email or web address]] [email or web address]
== END 2019-04-26 13:40 | disposition home or self-care (01) | DRG 92 ==
LOC: ERS 12:07 → INTOOBSV 16:46 → 2SE 16:46 → OBSVTOIN 16:46
PROVIDERS: ADMIT Internal Medicine; ATTEND Internal Medicine
DX: R27.0 Ataxia, unspecified (principal); E44.0 Moderate protein-calorie malnutrition; Z68.1 Body mass index [BMI] 19.9 or less, adult; E87.1 Hypo-osmolality and hyponatremia; Z79.899 Other long term (current) drug therapy; R00.1 Bradycardia, unspecified; F41.9 Anxiety disorder, unspecified; E03.9 Hypothyroidism, unspecified; E78.5 Hyperlipidemia, unspecified; F17.210 Nicotine dependence, cigarettes, uncomplicated; F31.9 Bipolar disorder, unspecified; F19.10 Other psychoactive substance abuse, uncomplicated; R51 Headache; I95.9 Hypotension, unspecified; Z79.890 Hormone replacement therapy
CPT/HCPCS: 36415; 36416; 70450; 70553; 71046; 72125; 80048; 80053; 80061; 80306; 82436; 82550; 82607; 83735; 83935; 84133; 84300; 84443; 84484; 85025; 85027; 86780; 87045; 87046; 87324; 87427; 87449; 93005; 93306; 93880; 96374; A9579; J2405; J7050; L0120; Q0162